=== PATIENT | male | born 1955 | race Caucasian/White ===

== ENCOUNTER 2024-08-16 08:58 | Inpatient (IN) | payer OTHER ==
[2024-08-16] MEDS ORDERED: Sodium Chloride 0.9% 10 ML Syringe FLUSH PRN (09:11)
[2024-08-16] MEDS: Albuterol/Ipratropium 3.0-0.5 MG/3 ML Neb Soln NEB ONE (09:23)
[2024-08-16 09:32] LABS: BASOPHILS PERCENT AUTO 0.2 % (0.0-1.0); HEMATOCRIT 50.5 % (40.0-54.0); HEMOGLOBIN 17.8 g/dL (14.0-18.0); LYMPHOCYTES PERCENT AUTO 2.8 % (20.5-50.1); MEAN CORPUSCULAR HEMOGLOBIN 35.3 pg (27.0-34.0); MEAN CORPUSCULAR HGB CONC 35.2 g/dL (33.0-35.0); MEAN CORPUSCULAR VOLUME 100.2 fL (80-100); PLATELET COUNT,PLT 185 10^3/uL (150-450); RED BLOOD CELL COUNT 5.04 10^6/uL (4.6-6.2); WHITE BLOOD CELL COUNT,WBC 10.3 10^3/uL (5.0-10.0)
[2024-08-16] MEDS: Albuterol 0.083% 2.5 MG/3 ML Neb Soln NEB ONE ×2 (09:41→10:14)
[2024-08-16 09:57] LABS: B-TYPE NATRIURETIC PEPTIDE,BNP 156 pg/ml (0-100)
[2024-08-16 10:08] LABS: INR 1.2 (0.9-1.2); PROTHROMBIN TIME 12.6 SEC (9.0-12.0); PTT,PARTIAL THROMBOPLSTIN TIME 30.5 SEC (22.0-34.0)
[2024-08-16] MEDS: Sodium Chloride 0.9% 500 ML IV ONE (10:11)
[2024-08-16] MEDS: Albuterol/Ipratropium 3.0-0.5 MG/3 ML Neb Soln ONE (10:11)
[2024-08-16 10:12] LABS: ALANINE AMINOTRANSFERASE,ALT 23 U/L (16-63); ALBUMIN 3.2 g/dL (3.4-5.0); ALKALINE PHOSPHATASE 146 U/L (46-116); ANION GAP 9.3 mEq/L (7-13); ASPARTATE AMNIOTRANSFERASE,AST 28 U/L (15-37); BLOOD UREA NITROGEN,BUN 13 mg/dL (7-18); BUN/CREATININE RATIO 14.1 (No establ ref range); CALCIUM 9.2 mg/dL (8.5-10.1); CARBON DIOXIDE,CO2 30 mmol/L (21-32); CHLORIDE,CL 88 mmol/L (98-107); CREATININE 0.92 mg/dL (0.70-1.30); GLUCOSE RANDOM 156 mg/dL (70-99); MAGNESIUM 1.9 mg/dL (1.8-2.4); POTASSIUM,K 4.3 mmol/L (3.5-5.1); PROTEIN TOTAL,TP 7.1 g/dL (6.4-8.2); SODIUM,NA 123 mmol/L (136-145)
[2024-08-16 10:14] LABS: A/G RATIO 0.82; ESTIMATED GFR 91 mL/min (>=60)
[2024-08-16] MEDS: methylPREDNISolone Sodium Succinate 125 MG/2 ML SDV IVPUSH ONE (10:14)
[2024-08-16] MEDS: Levofloxacin/Dextrose 5%-Water 750 MG in Premix Bag 1 BAG IV ONE (10:26)
[2024-08-16] MEDS: Albuterol 0.083% 2.5 MG/3 ML Neb Soln ONE (10:29)
[2024-08-16 10:37] LABS: O2 DELIVERY DEVICE NASAL CANNULA
[2024-08-16 10:40] LABS: BASE EXCESS VENOUS 0.6 mmol/l ((-2)-(+3)); BICARBONATE,VENOUS 29 mmol/l (19-25); O2 SATURATION VENOUS 72 % (60-80); PH,VENOUS 7.28 (7.31-7.41); PO2 VENOUS 47 mmHg (35-42)
[2024-08-16 10:41] LABS: PCO2 VENOUS 63 mmHg (41-51)
[2024-08-16 11:32] LABS: C-REACTIVE PROTEIN 21.05 ng/dL (<=0.50)
[2024-08-16] MEDS ORDERED: hydrALAZINE 20 MG/ML SDV IVPUSH PRN (11:56)
[2024-08-16] MEDS ORDERED: Ondansetron 4 MG/2 ML SDV IVPUSH PRN (11:57)
[2024-08-16] MEDS ORDERED: Magnesium Hydroxide 400 MG/5 ML Susp 30 ML Cup PO PRN (11:57)
[2024-08-16] MEDS ORDERED: Prochlorperazine 25 MG Supp RECTAL PRN (11:57)
[2024-08-16] MEDS ORDERED: Polyethylene Glycol 3350 Powder 17 GM Packet PO PRN (11:57)
[2024-08-16] MEDS ORDERED: Naloxone 2 MG/2 ML Syringe IVPUSH PRN (11:57)
[2024-08-16] MEDS ORDERED: Acetaminophen 325 MG Tab PO PRN (11:57)
[2024-08-16] MEDS ORDERED: Glucagon,Human Recombinant 1 MG Vial IM PRN (12:05)
[2024-08-16] MEDS ORDERED: 50% Dextrose in Water 50 ML Syringe IVPUSH PRN (12:05)
[2024-08-16] MEDS: guaiFENesin 600 MG Tab.ER PO ONE (12:49)
[2024-08-16] MEDS: Aminophylline 500 MG in Sodium Chloride 0.9% 500 ML IV SCH (12:50)
[2024-08-16] MEDS: Diltiazem 25 MG/5 ML SDV IVPUSH ONE (15:37)
[2024-08-16] MEDS: Diltiazem 125 MG in Sodium Chloride 0.9% 100 ML IV SCH (15:38)
[2024-08-16] MEDS: Insulin Lispro 100 Units/ML 3 ML Vial SUBCUT SCH (17:47)
[2024-08-16] MEDS: Metoprolol Tartrate 5 MG/5 ML SDV IVPUSH PRN (17:48)
[2024-08-16] MEDS: Formoterol/Mometasone 200-5 MCG 8.8 GM Inhaler INH SCH (18:03)
[2024-08-16] MEDS: methylPREDNISolone Sodium Succinate 125 MG/2 ML SDV IVPUSH SCH (18:04)
[2024-08-16] MEDS: Ampicillin/Sulbactam Na 1.5 GM in Sodium Chloride 0.9% 100 ML IV SCH (18:04)
[2024-08-16] MEDS: Pantoprazole 40 MG Tab.CR PO SCH (18:04)
[2024-08-16] MEDS: Albuterol/Ipratropium 3.0-0.5 MG/3 ML Neb Soln NEB PRN (19:33)
[2024-08-16] MEDS: guaiFENesin 600 MG Tab.ER PO SCH (22:04)
[2024-08-16] MEDS: Digoxin 500 MCG/2 ML Amp IVPUSH ONE (22:05)
[2024-08-16] MEDS: Morphine 2 MG/ML SYRINGE IVPUSH PRN (23:26)
[2024-08-17] MEDS: Digoxin 500 MCG/2 ML Amp IVPUSH SCH (03:00)
[2024-08-17] MEDS: Melatonin 3 MG Tab PO PRN (03:30)
[2024-08-17] MEDS: Tiotropium Bromide 4 GM Inhalation Spray (2.5mcg/1 dose; 10 doses) INH SCH (05:28)
[2024-08-17] MEDS ORDERED: Cyclobenzaprine 10 MG Tab PO PRN (06:11)
[2024-08-17 06:46] LABS: BASOPHILS PERCENT AUTO 0.2 % (0.0-1.0); HEMOGLOBIN 17.7 g/dL (14.0-18.0); LYMPHOCYTES PERCENT AUTO 3.8 % (20.5-50.1); MEAN CORPUSCULAR HEMOGLOBIN 35.7 pg (27.0-34.0); MEAN CORPUSCULAR HGB CONC 36.1 g/dL (33.0-35.0); MEAN CORPUSCULAR VOLUME 98.8 fL (80-100); MONOCYTES PERCENT AUTO 6.2 % (2-8); NEUTROPHILS PERCENT AUTO 89.8 % (42.2-75.2); PLATELET COUNT,PLT 212 10^3/uL (150-450); RED BLOOD CELL COUNT 4.96 10^6/uL (4.6-6.2); WHITE BLOOD CELL COUNT,WBC 12.1 10^3/uL (5.0-10.0)
[2024-08-17 07:03] LABS: ANION GAP 12.1 mEq/L (7-13); BILIRUBIN TOTAL 0.8 mg/dL (0.2-1.0); BUN/CREATININE RATIO 20.2 (No establ ref range); CALCIUM 9.2 mg/dL (8.5-10.1); CREATININE 0.84 mg/dL (0.70-1.30); EST CRCL DRUG DOSING (CG) 86.9 mL/min; MAGNESIUM 2.1 mg/dL (1.8-2.4); POTASSIUM,K 4.1 mmol/L (3.5-5.1); PROTEIN TOTAL,TP 6.9 g/dL (6.4-8.2)
[2024-08-17 07:05] LABS: A/G RATIO 0.77
[2024-08-17] MEDS ORDERED: Sodium Chloride 0.9% 100 ML IV PRN (08:13)
[2024-08-17] MEDS: DULoxetine 30 MG Cap PO SCH (08:34)
[2024-08-17] MEDS: Digoxin 500 MCG/2 ML Amp IVPUSH ONE (08:34)
[2024-08-17] MEDS: Cholecalciferol (Vitamin D3) 25 MCG Tab PO SCH (08:35)
[2024-08-17] MEDS: Apixaban 5 MG Tab PO SCH ×2 (08:35→08:37)
[2024-08-17] MEDS: Metoprolol Tartrate 25 MG Tab PO SCH ×2 (08:35→20:55)
[2024-08-17] MEDS: amLODIPine 5 MG Tab PO SCH (08:36)
[2024-08-17] MEDS: Losartan 50 MG Tab PO SCH (08:36)
[2024-08-17] MEDS: Hydrochlorothiazide 25 MG Tab PO SCH (08:36)
[2024-08-17] MEDS: Magnesium Sulfate/Water Premix 2 GM in Premix Bag 1 BAG IV ONE (08:37)
[2024-08-17] MEDS ORDERED: Metoprolol Tartrate 25 MG Tab PO SCH (09:00)
[2024-08-17] MEDS ORDERED: HYDROCHLOROTHIAZIDE PO SCH (09:00)
[2024-08-17] MEDS ORDERED: LOSARTAN PO SCH (09:00)
[2024-08-17] MEDS: hydrOXYzine HCl 25 MG Tab PO PRN (20:56)
[2024-08-17 21:50] LABS: T4 FREE 1.25 ng/dL (0.76-1.46); TSH ULTRASENSITIVE 0.52 uIU/mL (0.36-3.74)
[2024-08-17] MEDS: Morphine 2 MG/ML SYRINGE IVPUSH PRN (23:46)
[2024-08-18] MEDS ORDERED: Flumazenil 0.1 MG/ML 5 ML MDV IVPUSH PRN (06:26)
[2024-08-18 06:36] LABS: BASOPHILS PERCENT AUTO 0.1 % (0.0-1.0); HEMATOCRIT 50.8 % (40.0-54.0); HEMOGLOBIN 17.5 g/dL (14.0-18.0); LYMPHOCYTES PERCENT AUTO 2.9 % (20.5-50.1); MEAN CORPUSCULAR HEMOGLOBIN 35.5 pg (27.0-34.0); MEAN CORPUSCULAR HGB CONC 34.4 g/dL (33.0-35.0); PLATELET COUNT,PLT 239 10^3/uL (150-450); RED BLOOD CELL COUNT 4.93 10^6/uL (4.6-6.2); WHITE BLOOD CELL COUNT,WBC 15.2 10^3/uL (5.0-10.0)
[2024-08-18 06:48] LABS: ALBUMIN 2.9 g/dL (3.4-5.0); ANION GAP 9.4 mEq/L (7-13); BILIRUBIN TOTAL 0.5 mg/dL (0.2-1.0); BUN/CREATININE RATIO 23.2 (No establ ref range); C-REACTIVE PROTEIN 5.9 ng/dL (<=0.50); CALCIUM 9.2 mg/dL (8.5-10.1); CREATININE 1.12 mg/dL (0.70-1.30); EST CRCL DRUG DOSING (CG) 65.18 mL/min; MAGNESIUM 2.4 mg/dL (1.8-2.4); POTASSIUM,K 4.4 mmol/L (3.5-5.1); PROTEIN TOTAL,TP 6.7 g/dL (6.4-8.2); VANCOMYCIN RANDOM 27.7 ug/mL (No Normal Range)
[2024-08-18 06:50] LABS: A/G RATIO 0.76
[2024-08-18] MEDS: Digoxin 250 MCG Tab PO SCH (07:37)
[2024-08-18] MEDS: LORazepam 2 MG/ML SDV IVPUSH ONE (07:38)
[2024-08-18 16:23] LABS: ALLEN TEST Yes; BASE EXCESS ARTERIAL 1 mmol/L ((-2)-(+3)); BICARBONATE,ARTERIAL 27.9 mmol/L (22-26); O2 DELIVERY DEVICE HI FLOW NASAL CANNU; O2 FLOW RATE 60; O2 SATURATION ARTERIAL 93 % (95-100); PCO2 ARTERIAL 55 mmHg (35-45); PH,ARTERIAL 7.33 (7.35-7.45); PO2 ARTERIAL 64 mmHg (70-100)
[2024-08-18] MEDS: Nicotine 21 MG/24 Hr Patch TRDERM SCH (16:40)
[2024-08-18] MEDS: Ziprasidone Mesylate 20 MG Vial IM ONE (21:42)
[2024-08-18] MEDS: Check Patch TRDERM SCH (21:49)
[2024-08-19] MEDS: VANCOmycin 1.5 GM/300 ML 300 ML IV SCH (00:38)
[2024-08-19 06:44] LABS: BASOPHILS PERCENT AUTO 0.1 % (0.0-1.0); HEMATOCRIT 51.8 % (40.0-54.0); HEMOGLOBIN 17.7 g/dL (14.0-18.0); LYMPHOCYTES PERCENT AUTO 2.5 % (20.5-50.1); MEAN CORPUSCULAR HGB CONC 34.2 g/dL (33.0-35.0); MEAN CORPUSCULAR VOLUME 102.6 fL (80-100); NEUTROPHILS PERCENT AUTO 92.4 % (42.2-75.2); PLATELET COUNT,PLT 219 10^3/uL (150-450); RED BLOOD CELL COUNT 5.05 10^6/uL (4.6-6.2); WHITE BLOOD CELL COUNT,WBC 13.4 10^3/uL (5.0-10.0)
[2024-08-19 07:00] LABS: BASE EXCESS ARTERIAL 2 mmol/L ((-2)-(+3)); BICARBONATE,ARTERIAL 29.7 mmol/L (22-26); O2 DELIVERY DEVICE HI FLOW NASAL CANNU; O2 SATURATION ARTERIAL 86 % (95-100); PCO2 ARTERIAL 58 mmHg (35-45); PH,ARTERIAL 7.33 (7.35-7.45); PO2 ARTERIAL 52 mmHg (70-100)
[2024-08-19 07:01] LABS: ALLEN TEST PERFORMED; O2 FLOW RATE 60
[2024-08-19 07:07] LABS: BILIRUBIN TOTAL 0.4 mg/dL (0.2-1.0); BUN/CREATININE RATIO 22.4 (No establ ref range); C-REACTIVE PROTEIN 2.95 ng/dL (<=0.50); CREATININE 1.07 mg/dL (0.70-1.30); EST CRCL DRUG DOSING (CG) 68.22 mL/min; MAGNESIUM 2.2 mg/dL (1.8-2.4); PROTEIN TOTAL,TP 6.5 g/dL (6.4-8.2)
[2024-08-19 07:12] LABS: A/G RATIO 0.86
[2024-08-19] MEDS: Modafinil 100 MG Tab PO SCH (08:56)
[2024-08-19] MEDS: Water For Injection, Sterile 10 ML ONE ×2 (09:03→21:24)
[2024-08-19] MEDS: acetaZOLAMIDE 500 MG Vial IVPUSH SCH (09:05)
[2024-08-19 12:19] LABS: ALLEN TEST PERFORMED; BASE EXCESS ARTERIAL 3 mmol/L ((-2)-(+3)); BICARBONATE,ARTERIAL 29.9 mmol/L (22-26); O2 DELIVERY DEVICE BIPAP; O2 SATURATION ARTERIAL 96 % (95-100); PCO2 ARTERIAL 59 mmHg (35-45); PH,ARTERIAL 7.33 (7.35-7.45); PO2 ARTERIAL 75 mmHg (70-100)
[2024-08-19] MEDS: Amiodarone 200 MG Tab PO ONE (12:42)
[2024-08-19] MEDS: Amiodarone 200 MG Tab PO SCH (21:22)
[2024-08-20 06:43] LABS: BASOPHILS PERCENT AUTO 0.1 % (0.0-1.0); HEMATOCRIT 51.4 % (40.0-54.0); HEMOGLOBIN 17.6 g/dL (14.0-18.0); LYMPHOCYTES PERCENT AUTO 1.3 % (20.5-50.1); MEAN CORPUSCULAR HEMOGLOBIN 34.8 pg (27.0-34.0); MEAN CORPUSCULAR HGB CONC 34.2 g/dL (33.0-35.0); MEAN CORPUSCULAR VOLUME 101.6 fL (80-100); MONOCYTES PERCENT AUTO 5.1 % (2-8); NEUTROPHILS PERCENT AUTO 93.5 % (42.2-75.2); PLATELET COUNT,PLT 210 10^3/uL (150-450); RED BLOOD CELL COUNT 5.06 10^6/uL (4.6-6.2)
[2024-08-20 07:18] LABS: ALBUMIN 2.8 g/dL (3.4-5.0); ANION GAP 6.5 mEq/L (7-13); BILIRUBIN TOTAL 0.5 mg/dL (0.2-1.0); BUN/CREATININE RATIO 19.8 (No establ ref range); C-REACTIVE PROTEIN 1.45 ng/dL (<=0.50); CALCIUM 8.8 mg/dL (8.5-10.1); CREATININE 1.06 mg/dL (0.70-1.30); EST CRCL DRUG DOSING (CG) 68.87 mL/min; POTASSIUM,K 3.5 mmol/L (3.5-5.1); PROTEIN TOTAL,TP 6.2 g/dL (6.4-8.2); VANCOMYCIN RANDOM 25.9 ug/mL (No Normal Range)
[2024-08-20 07:19] LABS: A/G RATIO 0.82
[2024-08-20] MEDS: Theophylline 300 MG Tab.ER PO SCH (08:56)
[2024-08-20] MEDS: methylPREDNISolone Sodium Succinate 125 MG/2 ML SDV IVPUSH SCH (13:06)
[2024-08-20 19:14] LABS: ALBUMIN 2.8 g/dL (3.4-5.0); ANION GAP 6.4 mEq/L (7-13); BILIRUBIN TOTAL 0.5 mg/dL (0.2-1.0); BUN/CREATININE RATIO 21.1 (No establ ref range); CALCIUM 8.8 mg/dL (8.5-10.1); CREATININE 1.09 mg/dL (0.70-1.30); EST CRCL DRUG DOSING (CG) 66.97 mL/min; POTASSIUM,K 3.4 mmol/L (3.5-5.1)
[2024-08-20 19:24] LABS: A/G RATIO 0.88
[2024-08-20] MEDS: Metoprolol Tartrate 50 MG Tab PO SCH (21:58)
[2024-08-20] MEDS: Sennosides/Docusate Sodium 50-8.6 MG Tab PO PRN (22:00)
[2024-08-21] MEDS: Potassium Chloride 10 MEQ Tab.ER PO SCH (08:38)
[2024-08-21] MEDS: methylPREDNISolone Sodium Succinate 125 MG/2 ML SDV IVPUSH SCH (13:40)
[2024-08-21] MEDS: Acetaminophen/oxyCODONE 325-5 MG Tab PO PRN (21:17)
[2024-08-22 06:30] LABS: BASOPHILS PERCENT AUTO 0.2 % (0.0-1.0); HEMATOCRIT 50.1 % (40.0-54.0); HEMOGLOBIN 17.4 g/dL (14.0-18.0); MEAN CORPUSCULAR HEMOGLOBIN 34.9 pg (27.0-34.0); MEAN CORPUSCULAR HGB CONC 34.7 g/dL (33.0-35.0); MEAN CORPUSCULAR VOLUME 100.4 fL (80-100); NEUTROPHILS PERCENT AUTO 92.8 % (42.2-75.2); PLATELET COUNT,PLT 206 10^3/uL (150-450); RED BLOOD CELL COUNT 4.99 10^6/uL (4.6-6.2)
[2024-08-22 07:59] LABS: A/G RATIO 0.82; ALBUMIN 2.8 g/dL (3.4-5.0); ANION GAP 7.5 mEq/L (7-13); BILIRUBIN TOTAL 0.7 mg/dL (0.2-1.0); BUN/CREATININE RATIO 21.9 (No establ ref range); C-REACTIVE PROTEIN 0.8 ng/dL (<=0.50); CALCIUM 8.6 mg/dL (8.5-10.1); CREATININE 0.96 mg/dL (0.70-1.30); EST CRCL DRUG DOSING (CG) 76.04 mL/min; MAGNESIUM 2.2 mg/dL (1.8-2.4); POTASSIUM,K 3.5 mmol/L (3.5-5.1); PROTEIN TOTAL,TP 6.2 g/dL (6.4-8.2)
== END 2024-08-22 16:10 | disposition home or self-care (01) | DRG 871 ==
LOC: DL.ED 08:58 → DL.MS 10:25 → DL.ED 11:05 → DL.MS 08-18 22:15
PROVIDERS: ADMIT Internal Medicine; ATTEND Internal Medicine
PROC: 4A133R1 Monitoring of Arterial Saturation, Peripheral, Percutaneous Approach (ICD-10-PCS; principal; 2024-08-16)
PROC: 3E03329 Introduction of Other Anti-infective into Peripheral Vein, Percutaneous Approach (ICD-10-PCS; 2024-08-17)
PROC: 5A0935A Assistance with Respiratory Ventilation, Less than 24 Consecutive Hours, High Flow/Velocity Cannula (ICD-10-PCS; 2024-08-18)
PROC: 5A0935A Assistance with Respiratory Ventilation, Less than 24 Consecutive Hours, High Flow/Velocity Cannula (ICD-10-PCS; 2024-08-19)
PROC: 5A09357 Assistance with Respiratory Ventilation, Less than 24 Consecutive Hours, Continuous Positive Airway Pressure (ICD-10-PCS; 2024-08-19)
DX: A41.3 Sepsis due to Hemophilus influenzae (principal); J14 Pneumonia due to Hemophilus influenzae; J18.9 Pneumonia, unspecified organism; J96.01 Acute respiratory failure with hypoxia; J96.02 Acute respiratory failure with hypercapnia; I48.91 Unspecified atrial fibrillation; J44.9 Chronic obstructive pulmonary disease, unspecified; E87.1 Hypo-osmolality and hyponatremia; I48.20 Chronic atrial fibrillation, unspecified; J44.1 Chronic obstructive pulmonary disease with (acute) exacerbation; J44.0 Chronic obstructive pulmonary disease with (acute) lower respiratory infection; I10 Essential (primary) hypertension; F41.1 Generalized anxiety disorder; F17.210 Nicotine dependence, cigarettes, uncomplicated; K59.09 Other constipation; M54.16 Radiculopathy, lumbar region; G89.29 Other chronic pain; E66.9 Obesity, unspecified; E88.09 Other disorders of plasma-protein metabolism, not elsewhere classified; D72.829 Elevated white blood cell count, unspecified; E87.8 Other disorders of electrolyte and fluid balance, not elsewhere classified; R73.03 Prediabetes; R79.89 Other specified abnormal findings of blood chemistry; H91.90 Unspecified hearing loss, unspecified ear; G31.84 Mild cognitive impairment of uncertain or unknown etiology; Z79.01 Long term (current) use of anticoagulants; Z79.82 Long term (current) use of aspirin; Z79.51 Long term (current) use of inhaled steroids; Z79.899 Other long term (current) drug therapy; Z98.1 Arthrodesis status; Z68.35 Body mass index [BMI] 35.0-35.9, adult
CPT/HCPCS: 36415; 71045; 80053; 83605; 83735; 83880; 84145; 84484; 85025; 85610; 85730; 86140; 87040 ×2; 87077; 87635; 87804 ×2; 93005; 93010; 96374; 99285 ×2; J2919; J7040; 36600; 80162; 80198; 80202; 82803; 82947; 84439; 84443; 87070; 87205; 87899; 94010; 94640; 94660; 94667; 94760; 97165-GO; 99232; 99233; 99238; A9270-GY; J0280; J0282; J0295; J1120; J1160; J1815-GY; J1956; J2060; J2270; J3370; J3372; J3475; J3486; J3490; J7050; J7613-GY; J7620-GY; U0002

== ENCOUNTER 2024-08-30 14:11 | Observation (INO) | payer OTHER ==
[2024-08-30] MEDS: Dexamethasone 4 MG/ML SDV IVPUSH ONE (14:50)
[2024-08-30] MEDS: Albuterol/Ipratropium 3.0-0.5 MG/3 ML Neb Soln NEB ONE ×2 (14:50→19:01)
[2024-08-30 14:52] LABS: BASOPHILS PERCENT AUTO 0.5 % (0.0-1.0); EOSINOPHILS PERCENT AUTO 1.1 % (1.0-3.0); HEMATOCRIT 51.9 % (40.0-54.0); HEMOGLOBIN 18.4 g/dL (14.0-18.0); LYMPHOCYTES PERCENT AUTO 8.6 % (20.5-50.1); MEAN CORPUSCULAR HEMOGLOBIN 34.8 pg (27.0-34.0); MEAN CORPUSCULAR HGB CONC 35.5 g/dL (33.0-35.0); MEAN CORPUSCULAR VOLUME 98.3 fL (80-100); MONOCYTES PERCENT AUTO 13.9 % (2-8); NEUTROPHILS PERCENT AUTO 75.9 % (42.2-75.2); PLATELET COUNT,PLT 210 10^3/uL (150-450); RED BLOOD CELL COUNT 5.28 10^6/uL (4.6-6.2); WHITE BLOOD CELL COUNT,WBC 10.7 10^3/uL (5.0-10.0)
[2024-08-30 15:16] LABS: B-TYPE NATRIURETIC PEPTIDE,BNP 125 pg/ml (0-100)
[2024-08-30 15:30] LABS: A/G RATIO 0.81; ALANINE AMINOTRANSFERASE,ALT 53 U/L (16-63); ALBUMIN 2.9 g/dL (3.4-5.0); ALKALINE PHOSPHATASE 104 U/L (46-116); ANION GAP 10.9 mEq/L (7-13); ASPARTATE AMNIOTRANSFERASE,AST 31 U/L (15-37); BILIRUBIN TOTAL 1.2 mg/dL (0.2-1.0); BLOOD UREA NITROGEN,BUN 12 mg/dL (7-18); BUN/CREATININE RATIO 9.6 (No establ ref range); CALCIUM 8.7 mg/dL (8.5-10.1); CARBON DIOXIDE,CO2 30 mmol/L (21-32); CHLORIDE,CL 96 mmol/L (98-107); CREATININE 1.25 mg/dL (0.70-1.30); ESTIMATED GFR 63 mL/min (>=60); GLUCOSE RANDOM 94 mg/dL (70-99); MAGNESIUM 1.8 mg/dL (1.8-2.4); POTASSIUM,K 3.9 mmol/L (3.5-5.1); PROTEIN TOTAL,TP 6.5 g/dL (6.4-8.2); SODIUM,NA 133 mmol/L (136-145)
[2024-08-30 15:37] LABS: LACTIC ACID 1.3 mmol/L (0.4-2.0)
[2024-08-30 16:56] LABS: APPEARANCE,URINE CLEAR (CLEAR); BILIRUBIN,URINE NEGATIVE (NEGATIVE); COLOR,URINE YELLOW (YELLOW); GLUCOSE,URINE NEGATIVE (NEGATIVE); KETONES,URINE 40 (NEGATIVE); LEUKOCYTE ESTERASE,URINE NEGATIVE (NEGATIVE); NITRITE,URINE NEGATIVE (NEGATIVE); OCCULT BLOOD,URINE TRACE-INTACT (NEGATIVE); PROTEIN,URINE 100 (NEGATIVE)
[2024-08-30 17:14] LABS: BACTERIA,URINE FEW /HPF (0-FEW/HPF); EPITHELIAL CELLS,URINE FEW /HPF (NOT SEEN); RBC,URINE 20-30 /HPF (0-5); WBC,URINE 0-5 /HPF (0-5/HPF)
[2024-08-30 17:16] LABS: MUCUS,URINE MODERATE /LPF (NOT SEEN)
[2024-08-30] MEDS: Iopamidol 755 Mg/ML 100 ML Bottle IVPUSH ONE (17:17)
[2024-08-30] MEDS: Sodium Chloride 0.9% 500 ML IV SCH (18:01)
[2024-08-30] MEDS: Doxycycline Monohydrate 100 MG Cap PO ONE (19:05)
[2024-08-30] MEDS ORDERED: Albuterol/Ipratropium 3.0-0.5 MG/3 ML Neb Soln NEB PRN (21:40)
[2024-08-30] MEDS ORDERED: Ondansetron 4 MG/2 ML SDV IVPUSH PRN (21:40)
[2024-08-30] MEDS ORDERED: Docusate Sodium 100 MG Cap PO PRN (21:40)
[2024-08-30] MEDS ORDERED: Bisacodyl 5 MG Tab PO PRN (21:40)
[2024-08-31 08:00] LABS: ANION GAP 12.7 mEq/L (7-13); CREATININE 1.13 mg/dL (0.70-1.30); EST CRCL DRUG DOSING (CG) 66.64 mL/min; POTASSIUM,K 3.7 mmol/L (3.5-5.1)
[2024-08-31] MEDS: predniSONE 20 MG Tab PO SCH (10:47)
[2024-08-31] MEDS: Amoxicillin/Clavulanate K 875-125 MG Tab PO SCH (10:47)
[2024-08-31] MEDS ORDERED: Cyclobenzaprine 10 MG Tab PO PRN (12:01)
[2024-08-31] MEDS ORDERED: Acetaminophen 500 MG Tab PO PRN (12:01)
[2024-08-31] MEDS ORDERED: Albuterol 6.7 GM Inhaler INH PRN (12:01)
[2024-08-31] MEDS ORDERED: methylPREDNISolone 4 MG Tab 21 Tab/Dosepak PO SCH (12:15)
[2024-08-31] MEDS ORDERED: hydrOXYzine HCl 25 MG Tab PO PRN (12:21)
[2024-08-31] MEDS: Formoterol/Mometasone 200-5 MCG 8.8 GM Inhaler INH SCH (18:17)
[2024-08-31] MEDS ORDERED: Amoxicillin/Clavulanate K 875-125 MG Tab PO SCH (21:00)
[2024-08-31] MEDS: Metoprolol Tartrate 50 MG Tab PO SCH (21:46)
[2024-08-31] MEDS: Melatonin 3 MG Tab PO PRN (21:47)
[2024-08-31] MEDS: guaiFENesin 600 MG Tab.ER PO SCH (21:47)
[2024-08-31] MEDS: Amiodarone 200 MG Tab PO SCH (21:47)
[2024-08-31] MEDS: Apixaban 5 MG Tab PO SCH (21:47)
[2024-08-31] MEDS: Check Patch TRDERM SCH (21:48)
[2024-09-01] MEDS: Nicotine 21 MG/24 Hr Patch TRDERM SCH (08:25)
[2024-09-01] MEDS: Hydrochlorothiazide 25 MG Tab PO SCH (08:27)
[2024-09-01] MEDS: DULoxetine 30 MG Cap PO SCH (08:27)
[2024-09-01] MEDS: Losartan 50 MG Tab PO SCH (08:28)
[2024-09-01] MEDS: Cholecalciferol (Vitamin D3) 25 MCG Tab PO SCH (08:28)
[2024-09-01] MEDS: Digoxin 250 MCG Tab PO SCH (08:30)
[2024-09-01] MEDS: amLODIPine 5 MG Tab PO SCH (08:30)
[2024-09-01] MEDS: Zolpidem 5 MG Tab PO PRN (20:48)
[2024-09-02] MEDS: Acetaminophen 325 MG Tab PO PRN (05:29)
[2024-09-02] MEDS: FLU (Fluad Triv) TS24-25 (65UP)/MF59C/PF 45 MCG/0.5 ML Syringe IM ONE (10:41)
== END 2024-09-02 10:33 ==
LOC: DL.ED 14:11 → DL.MS 19:43 → UNDOADMOB 19:43
PROVIDERS: ADMIT Internal Medicine; ATTEND Internal Medicine
DX: R53.1 Weakness (principal); J44.9 Chronic obstructive pulmonary disease, unspecified; J96.11 Chronic respiratory failure with hypoxia; J18.9 Pneumonia, unspecified organism; J40 Bronchitis, not specified as acute or chronic; I48.20 Chronic atrial fibrillation, unspecified; I10 Essential (primary) hypertension; F41.1 Generalized anxiety disorder; E66.9 Obesity, unspecified; E86.0 Dehydration; E87.1 Hypo-osmolality and hyponatremia; F17.210 Nicotine dependence, cigarettes, uncomplicated; Z79.01 Long term (current) use of anticoagulants; Z20.822 Contact with and (suspected) exposure to COVID-19; Z79.899 Other long term (current) drug therapy; Z79.2 Long term (current) use of antibiotics; Z91.199 Patient's noncompliance with other medical treatment and regimen due to unspecified reason
CPT/HCPCS: 36415; 71045; 71275; 80048; 80053; 81001; 83605; 83735; 83880; 84145; 84484; 85025; 85379; 87040; 87635; 87804; 90471; 90653; 93005; 96374; 97110; 97161; 97165; 97530; 99285; A9270; G0378; J1100; J7040; J7512; Q9967; 99222; 99232; 99239; G0008; J7620-GY; U0002